=== PATIENT | male | born 1985 | race Caucasian/White ===

== ENCOUNTER 2023-02-11 15:07 | Emergency (ER) | payer BC ==
[~2023-02-11] VITALS: Ht 185.4 cm; Wt 113.4 kg
[2023-02-11] MEDS ORDERED: ACETAMINOPHEN ES 500 MG TABLET ONE (16:08)
[2023-02-11] MEDS ORDERED: ACETAMINOPHEN ES 500 MG TABLET PO ONE (16:15)
[2023-02-11] MEDS ORDERED: IBUPROFEN 400 MG TABLET PO ONE (16:15)
[2023-02-11 16:16] LABS: BASOPHILS % (AUTO) 0.4 % (0.0-2.0); HEMATOCRIT 43.5 % (36.7-47.1); HEMOGLOBIN 14.3 g/dL (12.5-16.3); LYMPHOCYTES # (AUTO) 0.7 K/uL (0.8-4.8); LYMPHOCYTES % (AUTO) 9.1 % (20.5-51.5); MEAN CORPUSCULAR HGB CONC 33 g/dL (32.5-36.3); MEAN CORPUSCULAR VOLUME 82.2 fL (73.0-96.2); MONOCYTES # (AUTO) 0.9 K/uL (0.1-1.30); MONOCYTES % (AUTO) 11.3 % (0.0-11.0); NEUTROPHILS # (AUTO) 6.1 K/uL (1.8-8.9); NEUTROPHILS % (AUTO) 79.2 % (38.5-71.5); PLATELET COUNT (AUTO) 230 K/uL (152-348); RED BLOOD CELL COUNT(AUTO) 5.29 MIL/uL (4.06-5.63); RED CELL DISTRIBUTION WIDTH 14.7 % (12.1-16.2); WHITE BLOOD COUNT (AUTO) 7.7 K/uL (3.6-10.2)
[2023-02-11 16:17] LABS: DIFFERENTIAL COMMENT 1
[2023-02-11 16:25] LABS: CREATININE 1.4 mg/dL (0.6-1.3)
[2023-02-11 17:00] VITALS: O2SAT 99
== END 2023-02-11 17:06 | disposition home or self-care (01) ==
LOC: ER 15:12
DX: J06.9 Acute upper respiratory infection, unspecified (principal)
CPT/HCPCS: 36415; 85025; A4606; A4663; A9150